=== PATIENT | female | born 1980 | race Caucasian/White ===

== ENCOUNTER → 2020-07-07 | Outpatient (CLI) | payer BC ==
[2020-07-07 11:57] LABS: Basophils # (A) 0.1 k/uL (0-0.2); Basophils % (A) 1 %; Eosinophils # (A) 0.4 k/uL (0-0.7); Eosinophils % (A) 5 %; HCT 42.9 % (34.0-46.0); HGB 13.6 gm/dL (11.4-16.0); Lymphocytes # (A) 1.9 k/uL (1.0-4.8); Lymphocytes % (A) 26 %; MCH 27.2 pg (25.0-35.0); MCHC 31.6 g/dL (31.0-37.0); MCV 85.9 fL (80.0-100.0); Mean Platelet Volume 7.2; Monocytes # (A) 0.5 k/uL (0-1.0); Monocytes % (A) 6 %; Neutrophils # (A) 4.4 k/uL (1.3-7.7); Neutrophils % (A) 60 %; Platelet Count 328 k/uL (150-450); RDW 12.6 % (11.5-15.5); WBC 7.2 k/uL (3.8-10.6)
== END | disposition home or self-care (01) ==
LOC: LABPAT 10:53
PROVIDERS: ATTEND Obstetrics & Gynecology Obstetrics
DX: Z01.818 Encounter for other preprocedural examination (principal); N92.0 Excessive and frequent menstruation with regular cycle; N84.0 Polyp of corpus uteri
CPT/HCPCS: 36415; 85025

== ENCOUNTER 2020-07-15 08:04 | Day surgery (SDC) | payer BC ==
[2020-07-11 10:12] VITALS: BMI 32.4
--- NOTE | 2020-07-14 19:50 | HP ---
HISTORY AND PHYSICAL DATE OF SURGERY: 07/15/2020 CHIEF COMPLAINT: Heavy menstrual bleeding. HISTORY OF PRESENT ILLNESS: This is a 39-year-old female who noted complaints of heavy menstrual bleeding. She notes her menstrual cycles to be regular every 28-30 days, lasting 5-7 days, noted to be very heavy with clots. She denies spotting in between her cycles. She does report dysmenorrhea associated with her cycle and ovulation. At times she feels the cramping with ovulation can be just as bad as her menstrual cramping. She is currently sexually active and had a laparoscopic tubal ligation completed in 2012. Her most recent Pap smear was normal, with HPV being negative in addition. This was obtained approximately 3 years ago. The patient denies any other concerns. PAST MEDICAL HISTORY: 1. Significant for pseudotumor cerebri. 2. Thyroid nodule. PAST SURGICAL HISTORY: Significant for three C-sections completed in 2006, 2007 and 2012. With that last C- section in 2012 she did have a tubal ligation. She has NO KNOWN DRUG ALLERGIES. FAMILY MEDICAL HISTORY: Noncontributory. [employer] HISTORY: She is 3, para 3-0-0-3 with 3 prior C-sections. 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 She denies alcohol or drug use. REVIEW OF SYSTEMS: She denies fever or body aches, chills. She denies headaches. She denies any chest pain. She denies shortness of breath. She denies nausea, vomiting, diarrhea or constipation. She admits to dysmenorrhea and menorrhagia. She denies urgency, frequency and dysuria. She denies any history of easy bleeding or bruising and she denies any anxiety or depression. On vital signs, her blood pressure is noted to be stable. She is 193 pounds at 5 feet PHYSICAL EXAMINATION: She is a well-nourished, well-developed female in no acute distress. Breathing is noted to be nonlabored. Heart has a regular rate and rhythm. Abdomen is soft and nontender with normal bowel sounds. On genitourinary exam, her external genitalia is normal for age. No discharge or inflammatory lesions are noted. The vaginal tissue is noted to be pink and well-rugated with a normal vaginal vault. The bladder is nontender. No cystocele is present. Her cervix is appearing healthy. No lesions are present. Her uterus is nontender to palpation but slightly enlarged in mid plane. No adnexal masses are appreciated. Her perineum is normal with no rashes or skin lesions present. She is grossly oriented to person, place and time, and her judgment and insight appear intact. ASSESSMENT: Heavy menstrual bleeding. She was counseled on options for treatment, including IUD and endometrial ablation. Given the fact that she has had a laparoscopic tubal ligation, she requested endometrial ablation. [employer] pamphlet was given to the patient regarding endometrial ablation, and all questions were answered. Procedure was reviewed, including risks, which included uterine perforation, failure of the procedure. She states understanding and wishes to proceed. PLAN: NovaSure endometrial ablation with hysteroscopy and dilation and curettage. MMODL / IJN: [id number] /
[~2020-07-15 08:04] MED LIST: DEXAMETHASONE SOD PHOSPHATE 4 MG/ML 1 ML VIAL IV ONE; LACTATED RINGERS 1,000 ML IV SCH; LIDOCAINE 1% (10MG/ML) FOR IV START INTRADERMA PRN; MIDAZOLAM 2 MG/2 ML VIAL IV PRN; ONDANSETRON 4 MG/2 ML VIAL IVP ONE; Pre Op ABX Message 1 EACH MISC MISCELLANE ONE
[2020-07-15] MEDS ORDERED: MIDAZOLAM 2 MG/2 ML VIAL ONE (09:21)
[2020-07-15] MEDS ORDERED: fentaNYL (PF) 50 MCG/ML 2 ML AMP ONE (09:21)
[2020-07-15] MEDS ORDERED: KETOROLAC 15 MG/ML 1 ML VIAL ONE (09:21)
[2020-07-15] MEDS ORDERED: PROPOFOL 10 MG/ML 20 ML VIAL IV ONE (09:21)
--- NOTE | 2020-07-15 10:01 | P.OP ---
Date of Procedure: 07/15/20 Preoperative Diagnosis: Menorrhagia Postoperative Diagnosis: Same Procedure(s) Performed: Hysteroscopy, dilation and curettage, endometrial ablation Anesthesia: MAC Surgeon: Duyen Esparza Estimated Blood Loss (ml): 5 IV fluids (ml): 300 Urine output (ml): 100 Pathology: other (Endometrial curettings) Condition: stable Disposition: PACU Indications for Procedure: Heavy menstrual bleeding Operative Findings: Proliferative endometrial cavity Description of Procedure: Patient seen in the preoperative area and procedures reviewed once again and all questions were answered. Patient is taken back to the operating suite where general anesthesia was obtained without difficulty by the anesthesia department. She is prepped and draped in the normal sterile fashion in the dorsal lithotomy position. A red rubber catheter is used to drain the bladder of clear yellow urine. A weighted speculum was then placed in the vaginal vault the anterior lip of the cervix is visualized and grasped with a single-tooth tenaculum. The cervical canals then dilated and hysteroscope was performed. The hysteroscope was placed through the cervix and toward the endometrial cavity. The above- noted findings are visualized. Sharp curettage was performed and the specimen was sent to pathology for analysis. At this time the NovaSure device was opened and set the appropriate measurements for the patient's cavity. A length of 6, width of 3.6 after cavity assessment was passed a power of 125 was noted for a total cycle length of 41 seconds. After the cycle was completed the NovaSure w as removed without difficulty. The single-tooth tenaculum was taken off of the anterior lip of the cervix and hemostasis was appreciated. All counts were noted be correct 2 at the end of the procedure. Patient tolerated procedure well and was taken the recovery room awake in stable condition.
[2020-07-15 10:17] VITALS: TEMP 96.7
[2020-07-15] MEDS: HYDROmorphone 0.5 MG/0.5 ML SYRINGE IVP PRN ×2 (10:20→10:25)
[2020-07-15] MEDS ORDERED: LACTATED RINGERS 1,000 ML IV ONE (10:47)
[2020-07-15 11:09] VITALS: PULSE 70; RESP 16
[2020-07-15 11:22] VITALS: BP 134/85
== END 2020-07-15 11:33 | disposition home or self-care (01) ==
LOC: OR 08:04
PROVIDERS: ATTEND Obstetrics & Gynecology Obstetrics
DX: N92.0 Excessive and frequent menstruation with regular cycle (principal); N84.0 Polyp of corpus uteri; N94.6 Dysmenorrhea, unspecified; G93.2 Benign intracranial hypertension; E04.1 Nontoxic single thyroid nodule; Z98.51 Tubal ligation status; Z98.890 Other specified postprocedural states
CPT/HCPCS: 58563; 81025; 88305; J2250; J1100; J2405; J3010; J1885; J2704; J1170